=== PATIENT | male | born 1995 | race African-American/Black ===

== ENCOUNTER 2021-07-15 12:24 | Emergency (ER) | payer OTHER ==
[~2021-07-15] VITALS: Ht 177.8 cm; Wt 73.0 kg
[2021-07-15] MEDS ORDERED: KETOROLAC 30MG/ML VIAL IM ONE (13:00)
[2021-07-15 13:31] VITALS: BP 159/85
[2021-07-15 14:39] LABS: CLARITY URINE CLEAR (CLEAR); COLOR URINE YELLOW (YELLOW); KETONES URINE NEGATIVE (NEGATIVE); LEUKOCYTE ESTERASE URINE 1+ (NEGATIVE); NITRITE URINE NEGATIVE (NEGATIVE); OCCULT BLOOD URINE NEGATIVE (NEGATIVE); PH URINE 5.5 (4.5-8.0); PROTEIN URINE NEGATIVE (NEGATIVE); SPECIFIC GRAVITY URINE 1.019 (1.005-1.030); UROBILINOGEN URINE 0.2 E.U./dL (0.2-1.0)
[2021-07-15] MEDS ORDERED: DOXY100C5 MT (14:47)
[2021-07-15] MEDS ORDERED: IBUP-2029 MT (14:47)
[2021-07-15] MEDS ORDERED: LIDOCAINE HCL/PF 1% 10 MG/ML 5ML VIAL INFIL ONE (15:00)
[2021-07-15] MEDS ORDERED: LIDOCAINE HCL 1% 20ML VIAL (Pyxis) INJ INFIL NR (15:00)
[2021-07-15] MEDS ORDERED: CEFTRIAXONE SODIUM 500 MG/VIAL IM ONE (15:00)
[2021-07-15] MEDS ORDERED: DOXYCYCLINE HYCLATE 100MG CAPSULE PO ONE (15:00)
[2021-07-18 15:11] LABS: NEISSERIA GONORRHOEAE NAA Positive (Negative)
== END 2021-07-15 17:56 | disposition left against medical advice (07) ==
LOC: ER 12:24
DX: N45.1 Epididymitis (principal)
CPT/HCPCS: 76870; 81003; 87086; 87491; 87591; 93976; 96372; 99284; J1885; J0696; J3490

== ENCOUNTER 2021-09-21 15:51 | Emergency (ER) | payer MEDICAID, OTHER ==
[~2021-09-21] VITALS: Ht 177.8 cm; Wt 65.0 kg
[~2021-09-21 15:51] MED LIST: DOXY100C5 MT; IBUP-2029 MT
[2021-09-21 16:30] VITALS: BP 141/77
[2021-09-21] MEDS ORDERED: CEFTRIAXONE SODIUM 1 G/VIAL IM ONE (19:15)
[2021-09-21] MEDS ORDERED: DOXY100T2 MT (19:59)
== END 2021-09-21 20:34 | disposition home or self-care (01) ==
LOC: ER 15:58
DX: Z20.2 Contact with and (suspected) exposure to infections with a predominantly sexual mode of transmission (principal)
CPT/HCPCS: 87491; 87591; 96372; 99283; J0696